=== PATIENT | male | born 1975 | race Caucasian/White ===

== ENCOUNTER 2021-10-01 12:17 | Observation (INO) | payer BC ==
[~2021-10-01] VITALS: Ht 182.9 cm; Wt 92.7 kg
[2021-10-01] VITALS (10 sets, daily range): BP systolic 98–125; BP diastolic 61–79; PULSE 79–92; TEMP 98.3–98.5
[~2021-10-01 12:17] MED LIST: NO HOME MEDICATIONS
--- NOTE | 2021-10-01 12:50 | NUR ---
PATIENT IS A DIRECT ADMIT FROM OFFICE WITH ABD PAIN/HERNIA. A&O. VSS. C/O PAIN AND REQUESTING SOME PAIN MEDS. NOTIFIED , SEE ORDERS. STARTED 20 GAUZE IV INTO LEFT FORARM, IV FLUIDS INFUSING PER ORDERS, AND GAVE PRN IV MORPHINE. NPO FOR PENDING SURGERY. CONSENT OBTAINED. HEAD TO TOE ASSESSMENT COMPLETE. AT BEDSIDE. ORIENTED TO ROOM. CALL LIGHT IN REACH.
[2021-10-01] MEDS ORDERED: ZOFRAN ODT4 MG PO (13:25)
[2021-10-01] MEDS ORDERED: PERCOCET 325 MG1 TA2 PO (13:25)
[2021-10-01] MEDS ORDERED: MIRALAX PA17 GM/Dose PO (13:26)
--- NOTE | 2021-10-01 15:00 | NUR ---
PATIENT GOING DOWN TO OR VIA BED. CONSENT ON CHART. PRE-OP FLUIDS INFUSING INTO LEFT FORARM. AT BEDSIDE. PATIENT OFF FLOOR.
--- NOTE | 2021-10-01 18:15 | NUR ---
PT. ARRIVE TO FLOOR FROM PACU FOLLOWING A LEFT HERNIA REPAIR WITH MESH. PT. ORIENTED BUT DROWSY. COMPLAINING OF PAIN OF 8/10 AND MILD NAUSEA. MORPHINE WAS GIVEN AND POOL PROVIDED. ICE WATER PROVIDED. AT BEDSIDE. CALL LIGHT WITH IN REACH. NO FURTHER NEEDS AT THIS TIME.
--- NOTE | 2021-10-01 20:18 | NUR ---
PT IN BED, IS ALERT AND ORIENTED X4. HAS DRSG TO LT INGUINAL AREA, D/I. MEDICATED WITH PERCOCET 1 TAB PO FOR PAIN 5/10. TAKING ORAL FLUIDS WELL, INT TO LFA.
--- NOTE | 2021-10-01 21:30 | NUR ---
AMBULATES IN HALLWAY, GAIT STEADY. VOIDS AND HAS BM.
[2021-10-02 04:30] VITALS: BP 118/68; PULSE 77; TEMP 98.5
--- NOTE | 2021-10-02 06:00 | NUR ---
PT RATES PAIN 7/10 TO LEFT GROIN, PERCOCET GIVEN.
[2021-10-02 07:45] VITALS: BP 123/67; PULSE 81; TEMP 98.4
--- NOTE | 2021-10-02 07:50 | NUR ---
ASSESSMENT COMPLETE. PT. AWAKE AND ORDERING BREAKFAST. A&O X4. NO COMPLAINTS OF PAIN OR NAUSEA. DRESSING CD&I TO LLQ. INT WAS REMOVED FROM LEFT FOREARM. CALL LIGHT WITHIN REACH. NO FURHTER NEEDS AT THIS TIME.
--- NOTE | 2021-10-02 10:27 | NUR ---
PT. DISHCARGE INSTRUCTIONS GIVEN CONCERNING HOME PAIN MEDICATIONS, INCISION CARE, AND EDUCATION ON PROCEDURE. ALL QUESTIONS WERE INVITED AND ANSWERED. INT WAS PREVIOUSLY REMOVED. TOOK BELONGINGS AND PT. DISCHARGED VIA WHEELCHAIR.
--- NOTE | 2021-10-02 10:33 | NUR ---
Initial visit; Patient and his thanked [employer] Engineer for looking in on him, wishing him well and a rapid disgnosis and God's blessings.
== END 2021-10-02 10:30 | disposition home or self-care (01) ==
LOC: SURG 12:17
PROVIDERS: ADMIT Surgery
DX: K40.30 Unilateral inguinal hernia, with obstruction, without gangrene, not specified as recurrent (principal)
CPT/HCPCS: C1781; G0378; J0690; J1100; J1885; J2270; J2405; J2704; J3010; J7120